=== PATIENT | female | born 1990 | race Hispanic/Latino ===

== ENCOUNTER 2022-02-04 19:27 | Emergency (ER) | payer MEDICARE, MEDICAID ==
[~2022-02-04] VITALS: Ht 167.6 cm; Wt 117.9 kg
[2022-02-04] MEDS ORDERED: ONDANSETRON 4MG INJ IVP ONE (20:30)
[2022-02-04] MEDS ORDERED: 0.9%NACL 1000ML 1,000 ML IV ONE (20:30)
[2022-02-04] MEDS ORDERED: LACTATED RINGERS 1000ML 1,000 ML IV ONE (20:30)
[2022-02-04 20:47] LABS: BASOPHILS % (AUTO) 0.5 % (0.0-5.0); EOSINOPHILS % (AUTO) 1.1 % (0.0-8.0); HEMATOCRIT 41.2 % (36-48); LYMPHOCYTES % (AUTO) 25.9 % (21.0-51.0); MEAN CORPUSCULAR HEMOGLOBIN 30.1 pg (27.0-33.0); MEAN CORPUSCULAR HGB CONC 34.2 g/dL (32.0-36.0); MONOCYTES % (AUTO) 7.5 % (3.0-13.0); NEUTROPHILS % (AUTO) 64.5 % (40.0-77.0); PLATELET COUNT (AUTO) 302 K/uL (130-400); RED BLOOD CELL COUNT(AUTO) 4.68 MIL/uL (4.00-5.50); RED CELL DISTRIBUTION WIDTH 13.7 % (11.0-15.5); WHITE BLOOD COUNT (AUTO) 8.4 K/uL (4.8-10.8)
[2022-02-04 20:49] LABS: APPEARANCE,URINE CLOUDY (CLEAR); BILIRUBIN,URINE NEGATIVE (NEGATIVE); COLOR,URINE YELLOW (YELLOW); GLUCOSE, URINE (UA) NEGATIVE (NEGATIVE); KETONES,URINE NEGATIVE (NEGATIVE); LEUKOCYTE ESTERASE ,URINE 500 Leu/uL (NEGATIVE); NITRATE,URINE NEGATIVE (NEGATIVE); PROTEIN,URINE 30 mg/dL (NEGATIVE); UROBILINOGEN,URINE 3 mg/dL (0.2-1.0)
[2022-02-04 20:52] LABS: BACTERIA,URINE RARE /HPF (None Seen); MUCUS,URINE MOD LPF (None Seen); SQUAMOUS EPITHELIAL CELL,UR MANY /HPF (0-2); WBC,URINE 51-100 /HPF (0-1)
[2022-02-04 20:56] LABS: CREATININE 0.5 mg/dL (0.5-1.5); POTASSIUM 3.9 mmol/L (3.5-5.1)
[2022-02-04 21:22] LABS: ALBUMIN 3.3 g/dL (3.5-5.0); TOTAL PROTEIN, SERUM 6.6 g/dL (6.0-8.3)
[2022-02-04] MEDS ORDERED: CEPH500B PO (22:18)
[2022-02-04] MEDS ORDERED: CEFTRIAXONE 1G VIAL IVP ONE (22:30)
[2022-02-04 23:02] VITALS: BP 142/72
== END 2022-02-04 23:03 | disposition home or self-care (01) ==
LOC: EDH 19:27
DX: O23.41 Unspecified infection of urinary tract in pregnancy, first trimester (principal); N39.0 Urinary tract infection, site not specified; O21.8 Other vomiting complicating pregnancy; Z3A.09 9 weeks gestation of pregnancy
CPT/HCPCS: 99285; 96374; 76770; 76801; 96361; 96375; 84484; 80053; 84702; 85025; 87088; 81001; 36415; 93005; J7120; J7030; J0696; J2405

== ENCOUNTER 2022-08-19 14:08 | Observation (INO) | payer MEDICAID, MEDICARE ==
[~2022-08-19] VITALS: Ht 167.6 cm; Wt 121.1 kg
[~2022-08-19 14:08] MED LIST: CEPH500B PO
[2022-08-19 14:12] VITALS: BP 130/72
[2022-08-19] MEDS: LACTATED RINGERS 1000ML 1,000 ML IV SCH ×2 (14:47→15:31)
[2022-08-19 15:24] LABS: APPEARANCE,URINE CLOUDY (CLEAR); BILIRUBIN,URINE NEGATIVE (NEGATIVE); COLOR,URINE YELLOW (YELLOW); GLUCOSE, URINE (UA) NEGATIVE (NEGATIVE); KETONES,URINE NEGATIVE (NEGATIVE); LEUKOCYTE ESTERASE ,URINE 500 Leu/uL (NEGATIVE); NITRATE,URINE NEGATIVE (NEGATIVE); OCCULT BLOOD,URINE NEGATIVE (NEGATIVE); PROTEIN,URINE 30 mg/dL (NEGATIVE); UROBILINOGEN,URINE 0.2 mg/dL (0.2-1.0)
[2022-08-19 15:31] LABS: BACTERIA,URINE MOD /HPF (None Seen); MUCUS,URINE FEW LPF (None Seen); SQUAMOUS EPITHELIAL CELL,UR MANY /HPF (0-2)
[2022-08-19] MEDS ORDERED: PROMETHAZINE HCL 25 MG/ML 1ML AMPULE IM ONE (16:00)
== END 2022-08-19 16:30 | disposition home or self-care (01) ==
LOC: EDH 14:08 → LDH 14:09 → EDH 14:17
PROVIDERS: ADMIT Obstetrics & Gynecology; ATTEND Obstetrics & Gynecology
DX: O26.893 Other specified pregnancy related conditions, third trimester (principal); R10.9 Unspecified abdominal pain; R53.1 Weakness; O21.2 Late vomiting of pregnancy; Z3A.36 36 weeks gestation of pregnancy
CPT/HCPCS: 96372; 96360; 96361; 59025; 87088; 81001; G0378 ×2; G0379; J7120 ×3; J2550